=== PATIENT | female | born 1955 | race Caucasian/White ===

== ENCOUNTER 2016-11-24 22:44 | Emergency (ER) | payer SELFPAY ==
[2016-11-24] MEDS ORDERED: ONDANSETRON ODT 4 MG TAB.RAPDIS ONE (23:06)
[2016-11-24] MEDS ORDERED: ONDANSETRON HCL 4 MG/2 ML VIAL ONE (23:31)
[2016-11-24] MEDS ORDERED: MAGNESIUM SULFATE 1 GM/2 ML VIAL ONE (23:31)
[2016-11-24 23:39] LABS: A/G RATIO 1.4; ALBUMIN 4.3 g/dL (3.5-5.0); ALKALINE PHOSPHATASE 87 U/L (38-126); ALT 63 U/L (9-52); AST 37 U/L (14-36); BILIRUBIN, TOTAL 0.6 mg/dL (0.2-1.3); BLOOD UREA NITROGEN 14 mg/dL (7-17); CALCIUM 9.4 mg/dL (8.4-10.2); CHLORIDE 109 mmol/L (98-107); EST GLOMERULAR FILTRATION RATE > 60 mL/min; GLUCOSE 106 mg/dL (70-100); POTASSIUM 3.6 mmol/L (3.5-5.1); SODIUM 146 mmol/L (137-145); TOTAL PROTEIN 7.3 g/dL (6.3-8.2)
[2016-11-24 23:44] LABS: HEMATOCRIT 41.1 % (36.0-48.0); HEMOGLOBIN 13.9 g/dL (12.0-16.0); MEAN CELL VOLUME 88.1 fL (80.0-100.0); MEAN CORPUS. HGB CONCENTRATION 33.9 g/dL (32.0-36.0); MEAN CORPUSCULAR HEMOGLOBIN 29.9 pg (29.0-35.0); MEAN PLATELET VOLUME 8.1 fL (7.4-10.4); PLATELET COUNT 362 X 10^3uL (130-440); RED BLOOD COUNT 4.66 X 10^6uL (4.20-6.10); RED CELL DISTRIBUTION WIDTH 12.4 % (11.5-14.5); WHITE BLOOD COUNT 11.4 X 10^3uL (3.9-10.7)
--- NOTE | 2016-11-24 23:55 | CT REPORT ---
HISTORY: Headaches. COMPARISON: None. TECHNIQUE: Axial non-contrast images obtained from skull vertex through foramen magnum. Dose reduction technique was utilized. FINDINGS: There is no atrophy. There is no hemorrhage. There is no hydrocephalus. No mass lesion is identifi ed. Perry white differentiation adequate, there is no infarction. No midline shift is identified. T he paranasal sinuses are clear. IMPRESSION: No acute intracranial abnormality. Final Electronic Signature: This report was electronically signed by Ariela Posey MD on 11/24/2016 11:52 PM. [email or web address] /
[2016-11-24] MEDS ORDERED: KETOROLAC TROMETHAMINE 30 MG/ML VIAL ONE (23:58)
[2016-11-24 23:59] LABS: EOSINOPHIL % (Manual) 1 % (0.0-6.0); LYMPHOCYTE % (Manual) 25 % (20.0-40.0); MONOCYTE % (Manual) 12 % (2.0-10.0); NEUTROPHIL % (Manual) 62 % (54.0-75.0); PLATELET ESTIMATE ADEQUATE
--- NOTE | 2016-11-25 01:10 | ER NURSING DOCUMENTATION ---
Nurse's Notes [facility] [place] Name:Jolene Haile Age:61 yrs Sex:Female :1955 Arrival Date:11/24/2016 Time:22:41 BedTrauma-B Private MD: Diagnosis:Headache, Tension Presentation: 11/24 22:46 Presenting complaint: Patient states: Pt states she is under enormous stress and has a tg severe headache. EMS states: EMS reports a BP (manual) of 250/130. Transition of care: patient was not received from another setting of care. 22:46 Acuity: PRISCILLA 2 tg 22:46 Method Of Arrival: EMS: 410 tg 22:57 Care prior to arrival: Medication(s) given: Zofran 4mgODT. tg Triage Assessment: 22:50 Headache History: The patient has had previous headaches and this one is different than tg previous episodes. 23:47 Neuro: Level of Consciousness is awake, alert, Oriented to person, place, time, event, lb Ux Developer Designer are equal bilaterally Moves all extremities. Gait is steady, Speech is normal, Facial symmetry appears normal, Pupils are PERRLA. Historical: - Allergies: SULFA (SULFONAMIDES); Codeine; Nuts; Latex; - Home Meds: 1. Atenolol Oral (Last dose: 11/23/2016 21:00) - PMHx: MIGRAINES; HYPERTENSION; SVT; lymphoma CA; - PSHx: None; - Tetanus: unknown. - Ebola Screening: : Patient negative for fever greater than or equal to 101.5 degrees Fahrenheit, and additional compatible Ebola Virus Disease symptoms. Patient denies exposure to infectious person. Patient denies travel to an Ebola-affected area in the 21 days before illness onset. No symptoms or risks identified at this time. . - Immunization history: Flu Vaccine unknown. - Social history: Smoking status: Patient states was never smoker of tobacco. Screenin:38 Infectious Disease Risk Unable to Obtain. Abuse screen: Pt is being evicted tomorrow tg and does not have anywhere to go. Nutritional screening: No deficits noted. Vital Signs: 22:50 BP 166 / 69; Pulse 78; Resp 16; Temp 99.1(O); Pulse Ox 96% on R/A; Weight 86.18 kg (R); tg Height 5 ft. 5 in. (165.10 cm) (R); Pain 8/10; 23:28 BP 129 / 68; Pulse 69; Resp 18; em3 22:50 Body Mass Index 31.62 (86.18 kg, 165.10 cm) tg ED Course: 22:41 Patient arrived in ED. em3 22:42 Heron Sebastian MD is Attending Physician. be 22:46 Yan Lafleur RN is Primary Nurse. tg 22:48 Triage completed. tg 22:56 Arm band placed on Bed in low position Call Light in Reach Gowned HOB Elevated Side tg rails up x1. 23:[address] dnn 23:[address]. dnn 23:41 Report given to Ally Hi RN. Valuables Remains with patient. tg Administered Medications: 23:00 Drug: Zofran 8 mg; Route: IVP; Infused Over: 2 mins; Site: left antecubital; tg 11/25 01:07 Follow up: Response: Nausea is decreased lb 11/24 23:21 Drug: NS 0.9% 1000 ml; Route: IV; Rate: bolus; Site: left forearm; lb 11/25 01:07 Follow up: IV Status: Completed infusion; IV Intake: 1000ml lb 11/24 23:40 Drug: Magnesium Sulfate 2 grams; Route: IVPB; Infused Over: 30 mins; Site: left tg antecubital; 11/25 01:07 Follow up: IV Status: Completed infusion; IV Intake: 100ml lb 11/24 23:45 Drug: Toradol 30 mg; Route: IVP; Site: left forearm; fc 11/25 01:08 Follow up: Response: Pain is decreased lb Intake: 01:07 IV: 1000ml; Total: 1000ml. lb 01:07 IV: 100ml; Total: 1100ml. lb Outcome: 11/24 23:55 Discharge ordered by . be 11/25 01:08 Discharged to home ambulatory. lb Condition: good Discharge Assessment: Patient awake, alert and oriented x 3. No cognitive and/or functional deficits noted. Patient verbalized understanding of disposition instructions. Instructed on discharge instructions, follow up and referral plans. IV D/Nawaf 01:09 Patient left the ED. lb Signatures: Yan Lafleur RN RN tg Heron Sebastian MD MD be Norman, David dnn Meiklejohn Carson em3 keily ravi, Ally alves
--- NOTE | 2016-11-25 01:10 | ER PHYSICIAN DOCUMENTATION ---
Physician Documentation [facility] Name:Jolene Haile Age:61 yrs Sex:Female :1955 Arrival Date:11/24/2016 Time:22:41 BedTrauma-B Private MD: Heron Harrison Disposition: 11/24/16 23:55 Discharged to Home/Self Care. Impression: Headache, Tension. - Condition is Good. - Discharge Instructions: HEADACHE, Tension. - Medical Reconciliation form form. - Follow up: Private Physician; When: As needed; Reason: Recheck today's complaints. - Problem is an acute exacerbation. - Symptoms have improved. HPI: 11/24 22:58 This 61 yrs old Female presents to ER via EMS with complaints of Headache. be 22:58 The patient complains of pain to the forehead, left base of the skull and right base of be the skull. The patient describes the headache as pounding, a pressure, tension-type, related to being fired today and homeless. Onset: The symptoms/episode began/occurred suddenly, today. Associated signs and symptoms: Pertinent positives: dizziness, nausea, Pertinent negatives: altered mental status, fever, vomiting, weakness. Severity of symptoms: in the emergency department the pain has improved, mildly. Headache History: Denies prior headaches. Historical: - Allergies: SULFA (SULFONAMIDES); Codeine; Nuts; Latex; - Home Meds: 1. Atenolol Oral (Last dose: 11/23/2016 21:00) - PMHx: MIGRAINES; HYPERTENSION; SVT; lymphoma CA; - PSHx: None; - Tetanus: unknown. - Ebola Screening: : Patient negative for fever greater than or equal to 101.5 degrees Fahrenheit, and additional compatible Ebola Virus Disease symptoms. Patient denies exposure to infectious person. Patient denies travel to an Ebola-affected area in the 21 days before illness onset. No symptoms or risks identified at this time. . - Immunization history: Flu Vaccine unknown. - Social history: Smoking status: Patient states was never smoker of tobacco. ROS: 23:00 Neuro: Positive for headache, Negative for altered mental status, loss of consciousness.be 23:00 All other systems are negative. Exam: 23:00 Constitutional: This is a well developed, well nourished patient who is awake, alert, be and in moderate distress. Head/Face: Normocephalic, atraumatic. ENT: Nares patent. No nasal discharge, no septal abnormalities noted. Tympanic membranes are normal and external auditory canals are clear. Oropharynx with no redness, swelling, or masses, exudates, or evidence of obstruction, uvula midline. Mucous membranes moist. Chest/axilla: Normal chest wall appearance and motion. Nontender with no deformity. No lesions are appreciated. Cardiovascular: Regular rate and rhythm with a normal S1 and S2. No gallops, murmurs, or rubs. Normal PMI, no JVD. No pulse deficits. 23:00 Respiratory: Lungs have equal breath sounds bilaterally, clear to auscultation and be percussion. No rales, rhonchi or wheezes noted. No increased work of breathing, no retractions or nasal flaring. 23:00 Eyes: Pupils: equal, round, and reactive to light and accomodation. 23:00 Neck: ROM/movement: no acute changes. 23:00 Neuro: Orientation: is normal, no acute changes, Cranial nerves: grossly normal, Cerebellar function: is grossly normal, Gait: is steady, at a normal pace, without difficulty. Vital Signs: 22:50 BP 166 / 69; Pulse 78; Resp 16; Temp 99.1(O); Pulse Ox 96% on R/A; Weight 86.18 kg (R); tg Height 5 ft. 5 in. (165.10 cm) (R); Pain 8/10; 23:28 BP 129 / 68; Pulse 69; Resp 18; em3 22:50 Body Mass Index 31.62 (86.18 kg, 165.10 cm) tg MDM: 22:42 Patient medically screened. be 23:53 Data reviewed: vital signs, nurses notes, lab test result(s), radiologic studies, and be as a result, I will discharge patient, administer IV fluids, NS bolus, prescribe pain medication, Toradol, Zofran and magnesium. 11/24 23:43 Order name: COMPREHENSIVE METABOLIC PANEL; Complete Time: 02:13 EDMS 11/24 23:49 Interpretation: Normal Except: hypernatremia, elevated LFT's. be 11/24 23:58 Order name: LACTATE; Complete Time: 02:13 EDMS 11/25 02:13 Interpretation: Normal. be 11/24 23:59 Order name: CBC W/ MANUAL DIFFERENTIAL; Complete Time: 02:13 EDMS 11/25 02:13 Interpretation: Normal Except: left shift. be 11/24 23:56 Order name: CAT SCAN; HEAD W/O CON [id number]; Complete Time: 02:13 EDMS Dispensed Medications: 23:00 Drug: Zofran 8 mg; Route: IVP; Infused Over: 2 mins; Site: left antecubital; 11/25 01:07 Follow up: Response: Nausea is decreased lb 11/24 23:21 Drug: NS 0.9% 1000 ml; Route: IV; Rate: bolus; Site: left forearm; 11/25 01:07 Follow up: IV Status: Completed infusion; IV Intake: 1000ml lb 11/24 23:40 Drug: Magnesium Sulfate 2 grams; Route: IVPB; Infused Over: 30 mins; Site: left tg antecubital; 11/25 01:07 Follow up: IV Status: Completed infusion; IV Intake: 100ml lb 11/24 23:45 Drug: Toradol 30 mg; Route: IVP; Site: left forearm; 11/25 01:08 Follow up: Response: Pain is decreased lb Signatures: Yan Lafleur RN RN tg Heron Sebastian MD MD be collins, floyd Ally Heart lb
== END 2016-11-25 01:10 | disposition home or self-care (01) ==
LOC: ER 22:44
DX: G44.201 Tension-type headache, unspecified, intractable (principal); R42 Dizziness and giddiness; R11.0 Nausea; I10 Essential (primary) hypertension; Z79.899 Other long term (current) drug therapy
CPT/HCPCS: 70450; 80053; 83605; 85007; 85027; 96365; 96375; 99284; A0425; A0429; J1885; J2405; J3475